=== PATIENT | male | born 1965 | race Caucasian/White ===

== ENCOUNTER 2019-07-24 01:18 | Emergency (ER) | payer MEDICAID, OTHER ==
[~2019-07-24] VITALS: Ht 172.7 cm; Wt 123.0 kg
[2019-07-24 05:45] VITALS: BP 176/100
== END 2019-07-24 05:46 | disposition home or self-care (01) ==
LOC: ER 01:18
DX: S16.1XXA Strain of muscle, fascia and tendon at neck level, initial encounter (principal); S39.012A Strain of muscle, fascia and tendon of lower back, initial encounter; I10 Essential (primary) hypertension; Z88.0 Allergy status to penicillin; V43.52XA Car driver injured in collision with other type car in traffic accident, initial encounter; Y93.89 Activity, other specified; Y92.488 Other paved roadways as the place of occurrence of the external cause
CPT/HCPCS: 72100; 99284